=== PATIENT | female | born 1945 | race Caucasian/White ===

== ENCOUNTER 2016-10-21 17:40 | Emergency (ER) | payer MEDICARE, OTHER ==
[~2016-10-21] VITALS: Ht 162.6 cm; Wt 55.5 kg
[2016-10-21 17:45] VITALS: BP 140/61; PULSE 75; RESP 14; TEMP 97.7; O2SAT 100
[2016-10-21] MEDS ORDERED: LIPI40TA PO (17:45)
[2016-10-21] MEDS ORDERED: SODIUM CHLOR 0.9% 1000 ML INJ 1,000 ML IV ONE (17:59)
[2016-10-21] MEDS ORDERED: SODIUM CHLORIDE 0.9% FLUSH 10 ML FLUSH IVF PRN (18:00)
--- NOTE | 2016-10-21 18:04 | PD ---
HPI Chief Complaint: Syncope/Near-Syncope Time Seen by Provider: 17:45 Travel History International Travel<30 days: Yes Contact w/Intl Traveler<30days: [place] Traveled to: [place] Traveled to known affect area: No History of Present Illness HPI The patient is a 71-year-old female who presents to the emergency department via EMS from [place], [place], from her [employer] place of business for syncope. The patient states she drove from [place], [place] to [place], [place] several Dr. strong seen by the [employer]. The patient states that she had a hectic morning was unable to eat breakfast this morning. The patient was standing upright earlier today which became lightheaded, felt "woozy ", felt like she needed to sit down. The patient went outside and sat in her car but then thought she might need to lay down on the couch. The patient walked back into the place of business, opened a door, and felt like she is going to pass out. The patient states she dropped straight down, denies striking her head or neck on the floor. She thinks her mother that a loss of consciousness and the perioperative nurse thought she was having a seizure. However, when EMS arrived they think the patient had a syncopal episode. She was noted to be orthostatic and diaphoretic when she awakened. The patient was administered IV fluids and her symptoms have resolved. She does have a history of previous syncopal episodes with similar symptoms, denies any history of arrhythmias. She denies any headache, neck pain, current chest pain, shortness of breath, nausea, vomiting, or abdominal pain. Patient does note her symptoms have resolved. EMS states that when they sat the patient upright and did her orthostatics, her blood pressure fell from the 120s to the 80s consistent with orthostatic hypotension. PFSH Past Medical History Cancer: Yes (Skin) High Cholesterol: Yes Tetanus Vaccination: > 5 Years Influenza Vaccination: Yes ?: Not Menopausal: Yes Past Surgical History Appendectomy: Yes Hysterectomy: Yes Joint Replacement: Yes (Rt. knee) Other Surgery: Yes (Multiple excisions/BX R/T skin CA, multiple breast BX/ lumpectomies ) Social History Alcohol Use: Yes (Rare) Tobacco Use: No Substance Use: No Allergies-Medications (Allergen,Severity, Reaction): Coded Allergies: Latex (Verified Allergy, Severe, Rash, 10/21/16) Reported Meds & Prescriptions Reported Meds & Active Scripts Active Reported Lipitor (Atorvastatin Calcium) 40 Mg Tab 40 Mg PO HS Review of Systems Except as stated in HPI: all other systems reviewed are Neg General / Constitutional: No: Fever HENT: No: Headaches, Neck Pain Cardiovascular: Positive: Diaphoresis, Syncope, No: Chest Pain or Discomfort, Palpitations, Irregular Rhythm, Tachycardia Respiratory: No: Shortness of Breath Gastrointestinal: No: Nausea, Vomiting, Abdominal Pain Musculoskeletal: Positive: Weakness Neurologic: Positive: Syncope, No: Headache, Change in Mentation, Seizures Physical Exam Narrative GENERAL: Awake, alert, pleasant 71-year-old female who appears younger than her stated age and is in no acute respiratory distress. SKIN: Focused skin assessment warm/dry. HEAD: Atraumatic. Normocephalic. No visible Cifelli hematomas. EYES: Pupils equal and round. Pupils are 4 mm bilateral and reactive. EOMs are intact. ENT: No nasal bleeding or discharge. Mucous membranes pink and moist. NECK: Trachea midline. No JVD. No tenderness of the cervical vertebrae. CARDIOVASCULAR: Regular rate and rhythm. No murmur appreciated. RESPIRATORY: No accessory muscle use. Clear to auscultation. Breath sounds equal bilaterally. GASTROINTESTINAL: Abdomen soft, non-tender, nondistended. No rebound tenderness. Back: No tenderness of the thoracic or lumbar vertebrae. MUSCULOSKELETAL: No obvious deformities. No clubbing. No cyanosis. No edema. NEUROLOGICAL: Awake and alert. No obvious cranial nerve deficits. Motor grossly within normal limits. Normal speech. Nonfocal. Oriented 5. Follows commands without difficulty. PSYCHIATRIC: Appropriate mood and affect; insight and judgment normal. Data Data Last Documented VS Vital Signs Date Time Temp Pulse Resp B/P Pulse Ox O2 Delivery O2 Flow Rate FiO2 10/21/16 18:05 100 Room Air 10/21/16 17:45 97.7 75 14 140/61 Orders Electrocardiogram (10/21/16 17:59) Complete Blood Count With Diff (10/21/16 17:59) Comprehensive Metabolic Panel (10/21/16 17:59) Magnesium (Mg) (10/21/16 17:59) Ecg Monitoring (10/21/16 17:59) Iv Access Insert/Monitor (10/21/16 17:59) Oximetry (10/21/16 17:59) Sodium Chloride 0.9% Flush (Ns Flush) (10/21/16 18:00) Sodium Chlor 0.9% 1000 Ml Inj (Ns 1000 M (10/21/16 17:59) Orthostatic Vital Signs (10/21/16 17:59) Labs Laboratory Tests Test 10/21/16 18:03 White Blood Count 10.0 TH/MM3 Red Blood Count 3.98 MIL/MM3 Hemoglobin 12.5 GM/DL Hematocrit 37.1 % Mean Corpuscular Volume 93.0 FL Mean Corpuscular Hemoglobin 31.3 PG Mean Corpuscular Hemoglobin 33.6 % Concent Red Cell Distribution Width 11.8 % Platelet Count 210 TH/MM3 Mean Platelet Volume 8.1 FL Neutrophils (%) (Auto) 48.4 % Lymphocytes (%) (Auto) 45.3 % Monocytes (%) (Auto) 5.2 % Eosinophils (%) (Auto) 0.8 % Basophils (%) (Auto) 0.3 % Neutrophils # (Auto) 4.9 TH/MM3 Lymphocytes # (Auto) 4.5 TH/MM3 Monocytes # (Auto) 0.5 TH/MM3 Eosinophils # (Auto) 0.1 TH/MM3 Basophils # (Auto) 0.0 TH/MM3 CBC Comment DIFF FINAL Differential Comment Sodium Level 145 MEQ/L Potassium Level 3.7 MEQ/L Chloride Level 111 MEQ/L Carbon Dioxide Level 25.3 MEQ/L Anion Gap 9 MEQ/L Blood Urea Nitrogen 11 MG/DL Creatinine 0.64 MG/DL Estimat Glomerular Filtration 92 ML/MIN Rate Random Glucose 96 MG/DL Calcium Level 8.6 MG/DL Magnesium Level 1.9 MG/DL Total Bilirubin 0.4 MG/DL Aspartate Amino Transf 16 U/L (AST/SGOT) Alanine Aminotransferase 28 U/L (ALT/SGPT) Alkaline Phosphatase 64 U/L Total Protein 6.2 GM/DL Albumin 3.8 GM/DL [facility] Medical Decision Making Medical Screen Exam Complete: Yes Emergency Medical Condition: Yes Medical Record Reviewed: Yes Interpretation(s) EKG reveals normal sinus rhythm with a rate of 65. Inverted T-wave noted in lead 3. Laboratory Tests Test 10/21/16 18:03 White Blood Count 10.0 TH/MM3 Red Blood Count 3.98 MIL/MM3 Hemoglobin 12.5 GM/DL Hematocrit 37.1 % Mean Corpuscular Volume 93.0 FL Mean Corpuscular Hemoglobin 31.3 PG Mean Corpuscular Hemoglobin 33.6 % Concent Red Cell Distribution Width 11.8 % Platelet Count 210 TH/MM3 Mean Platelet Volume 8.1 FL Neutrophils (%) (Auto) 48.4 % Lymphocytes (%) (Auto) 45.3 % Monocytes (%) (Auto) 5.2 % Eosinophils (%) (Auto) 0.8 % Basophils (%) (Auto) 0.3 % Neutrophils # (Auto) 4.9 TH/MM3 Lymphocytes # (Auto) 4.5 TH/MM3 Monocytes # (Auto) 0.5 TH/MM3 Eosinophils # (Auto) 0.1 TH/MM3 Basophils # (Auto) 0.0 TH/MM3 CBC Comment DIFF FINAL Differential Comment Sodium Level 145 MEQ/L Potassium Level 3.7 MEQ/L Chloride Level 111 MEQ/L Carbon Dioxide Level 25.3 MEQ/L Anion Gap 9 MEQ/L Blood Urea Nitrogen 11 MG/DL Creatinine 0.64 MG/DL Estimat Glomerular Filtration 92 ML/MIN Rate Random Glucose 96 MG/DL Calcium Level 8.6 MG/DL Magnesium Level 1.9 MG/DL Total Bilirubin 0.4 MG/DL Aspartate Amino Transf 16 U/L (AST/SGOT) Alanine Aminotransferase 28 U/L (ALT/SGPT) Alkaline Phosphatase 64 U/L Total Protein 6.2 GM/DL Albumin 3.8 GM/DL Differential Diagnosis Differential diagnosis includes syncope, vasovagal syncope, cardiogenic syncope , arrhythmia, dehydration, orthostatic hypotension, electrolyte abnormality. Narrative Course IV was established, labs are drawn and sent, and the patient was placed on cardiac telemetry monitoring and continuous pulse oximetry monitoring. Orthostatic vital signs were obtained. The patient was administered IV fluids. EKG was ordered and interpreted. EKG was essentially unremarkable. Orthostatic vital signs are within normal limits. Labs are unremarkable. The patient's vital signs have resolved. The patient was reevaluated at 6:45 PM. The patient symptoms have resolved. It appears the patient had orthostatic vasovagal syncopal episode. The patient has no evidence of ectopy or arrhythmia on cardiac telemetry monitoring, EKG is unremarkable, laboratory evaluation is unremarkable. The patient will be provided a copy of her EKG and lab results at discharge, she is advised to follow-up with her primary physician and return if symptoms worsen or progress. Diagnosis Primary Impression: Syncope Qualified Code: R55 - Syncope, unspecified syncope type Patient Instructions: General Instructions Additional Instructions: Please provide the patient a copy of her EKG and lab results at discharge. Follow-up with your primary physician. Return if symptoms worsen or progress. Med/Other Pt SpecificInfo: No Change to Meds Disposition: 01 DISCHARGE HOME Condition: Stable Juan C Torres MD Oct 21, 2016 18:04
[2016-10-21 18:05] VITALS: O2SAT 100
[2016-10-21 18:07] LABS: AUTOMATED NEUTROPHIL # 4.9 TH/MM3 (1.8-7.7); BASOPHIL % 0.3 % (0.0-2.0); EOSINOPHIL # 0.1 TH/MM3 (0-0.4); EOSINOPHIL % 0.8 % (0.0-4.0); HEMATOCRIT 37.1 % (35.0-46.0); HEMO FLAGS DIFF FINAL; LYMPH % 45.3 % (9.0-44.0); LYMPHOCYTE # 4.5 TH/MM3 (1.0-4.8); MEAN CORPUSCULAR HEMOGLOBIN 31.3 PG (27.0-34.0); MEAN CORPUSCULAR HGB CONC 33.6 % (32.0-36.0); MONO % 5.2 % (0.0-8.0); NEUT % 48.4 % (16.0-70.0); PLATELET COUNT 210 TH/MM3 (150-450); RED BLOOD COUNT 3.98 MIL/MM3 (4.00-5.30); RED CELL DISTRIBUTION WIDTH 11.8 % (11.6-17.2)
[2016-10-21 18:15] LABS: CHLORIDE 111 MEQ/L (98-107); POTASSIUM 3.7 MEQ/L (3.5-5.1); SODIUM (NA) 145 MEQ/L (136-145)
[2016-10-21 18:19] LABS: ANION GAP 9 MEQ/L (5-15); BICARBONATE 25.3 MEQ/L (21.0-32.0); BLOOD UREA NITROGEN 11 MG/DL (7-18); MAGNESIUM 1.9 MG/DL (1.5-2.5)
[2016-10-21 18:22] LABS: ALT (GPT) 28 U/L (10-53); AST (GOT) 16 U/L (15-37); GLOMERULAR FILTRATION RATE 92 ML/MIN (>89)
[2016-10-21 18:24] LABS: TOTAL BILIRUBIN ADULT 0.4 MG/DL (0.2-1.0)
[2016-10-21 18:25] LABS: ALKALINE PHOSPHATASE 64 U/L (45-117)
--- NOTE | 2016-10-22 13:46 | EKG ---
Date Performed: 10/21/2016 Time Performed: 18:13:58 PTAGE: 71 years EKG: Sinus rhythm MODERATE INTRAVENTRICULAR CONDUCTION DELAY MINIMAL ST DEPRESSION BORDERLINE ECG NO PREVIOUS TRACING DOCTOR: Montserrat Good Interpretating Date/Time 10/22/2016 13:43:13
== END 2016-10-21 19:30 | disposition home or self-care (01) ==
LOC: PHED 17:40
DX: R55 Syncope and collapse (principal); R94.31 Abnormal electrocardiogram [ECG] [EKG]; E78.00 Pure hypercholesterolemia, unspecified
CPT/HCPCS: 80053; 83735; 85025; 93005; 96360; 99284; J7030